=== PATIENT | male | born 1990 | race Caucasian/White ===

== ENCOUNTER 2021-06-06 20:02 | Emergency (ER) | payer OTHER, MEDICAID, SELFPAY ==
[2021-06-06 20:20] VITALS: BP 127/77; PULSE 106; RESP 15; TEMP 36.2; O2SAT 96; BMI 25.7
--- NOTE | 2021-06-06 20:34 | ED_ITS ---
HPI - Nausea/Vomiting/Diarrhea General Chief complaint: Nausea/Vomiting/Diarrhea Stated complaint: nausea/semi psych episode Time Seen by Provider: 06/06/21 20:07 Source: patient and family Mode of arrival: Ambulatory Limitations: no limitations History of Present Illness HPI Narrative: Patient is a 31-year-old male. Known history of schizophrenia. Is on Geodon and Seroquel. Does see a mental health provider. Patient states that for the past 2-3 days he has not had any sleep. He has been living in his car. He is hearing voices. He states the voices are saying ?not nice things ?he has had occasional thoughts of hurting himself. The voices are telling him to hurt himself. He has not had any of his medication the past 2-3 days and most likely has only been taking it sporadically over the past couple weeks. Denies chest pain. No abdominal pain. Is having some nausea. No change in bowel habits. No rashes. No headache. He states that he feels ?out of it ? Related Data Allergies Allergy/AdvReac Type Severity Reaction Status Date / Time No Known Drug Allergies Allergy Verified 06/06/21 20:19 Review of Systems Constitutional Comments: No headache Cardiovascular Comments: No chest pain Respiratory Comments: No shortness of breath Gastrointestinal Comments: Has nausea but no vomiting Integumentary/Breasts Comments: No rashes Neurologic Neurologic: Reports system reviewed and no additional complaints, except as documented and Reports behavioral changes Psychiatric Psychiatric: Reports as per HPI, Reports behavioral changes, Reports difficulty concentrating, Reports auditory hallucinations, Denies irritability, Denies gladis c attacks, Reports paranoia and Reports suicidal ideation Hematologic/Lymphatic On Anticoagulants: No Patient History Medical History Schizophrenia Social History Smoking Status: Never smoker Smoking Status: Never smoker alcohol intake frequency: a few times a month Substance Use Type: does not use Exam Initial Vital Signs Initial Vital Signs: Vital Signs Temperature 97.2 F L 06/06/21 20:20 Pulse Rate 106 H 06/06/21 20:20 Respiratory Rate 15 06/06/21 20:20 Blood Pressure 127/77 06/06/21 20:20 Pulse Oximetry 96 06/06/21 20:20 Const General: cooperative and disheveled HENMT Head: normal to inspection and normocephalic Resp Effort & Inspection: normal respiratory effort Auscultation: clear to auscultation bilaterally Cardio Rate: regular rate Rhythm: regular rhythm GI Inspection: normal to inspection Skin General: no rashes or lesions noted Neuro General: patient alert, patient awake and moves all extremities Extrem General: normal to inspection and capillary refill normal Psych Appearance: grossly normal Speech and Movement: restless Mood: anxious mood and irritable mood Affect: blunted Attitude: cooperative Judgment: fair Course Orders Ordered: ED Orders 06/06/21 20:42 Acetaminophen Stat Complete Blood Count AUTO DIFF Stat Comprehensive Metabolic Panel Stat Ethanol (ETOH) Stat Lipase Stat Salicylate Stat Thyroid Stimulating Hormone Stat Discontinued Medications Sodium Chloride (Normal Saline 0.9%) 1,000 mls @ 1,000 mls/hr IV BOLUS ONE Stop: 06/06/21 21:30 Last Infusion: 06/06/21 21:55 Dose: 0 mls/hr Documented by: Admin: 06/06/21 20:47 Dose: 1,000 mls/hr Documented by: BEN Ondansetron HCl (Ondansetron 4 Mg/2 Ml Inj) 4 mg IV NOW ONE Stop: 06/06/21 20:32 Last Admin: 06/06/21 21:55 Dose: Not Given Documented by: BEN Quetiapine Fumarate (Quetiapine 25 Mg Tablet) 100 mg PO NOW ONE Stop: 06/06/21 20:32 Last Admin: 06/06/21 20:47 Dose: 100 mg Documented by: BEN Vital Signs Vital signs: Vital Signs - 8 hr 06/06/21 20:20 Temperature 97.2 F L Pulse Rate 106 H Respiratory Rate 15 Blood Pressure 127/77 Pulse Oximetry 96 MDM - Nausea/Vomiting/Diarrhea Lab Data Attestation: I reviewed the patient's lab results. Result diagrams: 06/06/21 20:42 06/06/21 20:42 Labs: Lab Results 06/06/21 06/06/21 06/06/21 Range/Units 20:42 20:42 20:42 WBC 8.4 (4.5-11.0) X10^3/uL RBC 4.85 (4.5-5.9) X10^6/uL Hgb 15.6 (13.5-17.5) g/dL Hct 44.9 (41-53) % MCV 92.5 (80-100) fL MCH 32.2 (26-34) PG MCHC 34.8 (30-36) % RDW 12.9 (11.6-14.8) % Plt Count 261 (150-400) X10^3/uL Neut % (Auto) 82.4 H (50-75) % Lymph % (Auto) 8.3 L (25-40) % Barber % (Auto) 6.5 (3-14) % Eos % (Auto) 0.6 L (2-4) % Baso % (Auto) 2.2 H (0-2) % Neut # (Auto) 6900 (5478-5187) /uL Lymph # (Auto) 700 L (1070-1904) /uL Barber # (Auto) 500 (0-900) /uL Eos # (Auto) 100 (0-450) /uL Baso # (Auto) 200 H (0-100) /uL Sodium 141 (137-145) mmol/L Potassium 4.4 (3.4-5.1) mmol/L Chloride 106 (98-107) mmol/L Carbon Dioxide 18 L (22-32) mmol/L BUN 24 H (9-20) mg/dL Creatinine 1.21 (0.66-1.25) mg/dL Estimated GFR > 60.0 (>60) mL/min BUN/Creatinine Ratio 19.8 (6-22) Glucose 103 H (70-100) mg/dL Calcium 10.7 H (8.4-10.2) mg/dL Total Bilirubin 1.4 H (0.2-1.3) mg/dL AST 25 (17-59) IU/L ALT 20 (<50) IU/L Alkaline Phosphatase 78 (38-126) U/L Total Protein 8.4 H (6.3-8.2) g/dL Albumin 5.2 H (3.5-5.0) g/dL Globulin 3.2 (1.7-4.1) g/dL Albumin/Globulin Ratio 1.6 (1.0-2.8) Lipase 97 (23-300) U/L TSH (0.47-4.68) uIU/mL Salicylates < 1.0 (<20) mg/dL Acetaminophen < 10 L (10-30) ug/mL Ethyl Alcohol < 10 ( - 10) mg/dL 06/06/21 Range/Units 20:42 WBC (4.5-11.0) X10^3/uL RBC (4.5-5.9) X10^6/uL Hgb (13.5-17.5) g/dL Hct (41-53) % MCV (80-100) fL MCH (26-34) PG MCHC (30-36) % RDW (11.6-14.8) % Plt Count (150-400) X10^3/uL Neut % (Auto) (50-75) % Lymph % (Auto) (25-40) % Barber % (Auto) (3-14) % Eos % (Auto) (2-4) % Baso % (Auto) (0-2) % Neut # (Auto) (0611-0542) /uL Lymph # (Auto) (6914-5653) /uL Barber # (Auto) (0-900) /uL Eos # (Auto) (0-450) /uL Baso # (Auto) (0-100) /uL Sodium (137-145) mmol/L Potassium (3.4-5.1) mmol/L Chloride (98-107) mmol/L Carbon Dioxide (22-32) mmol/L BUN (9-20) mg/dL Creatinine (0.66-1.25) mg/dL Estimated GFR (>60) mL/min BUN/Creatinine Ratio (6-22) Glucose (70-100) mg/dL Calcium (8.4-10.2) mg/dL Total Bilirubin (0.2-1.3) mg/dL AST (17-59) IU/L ALT (<50) IU/L Alkaline Phosphatase (38-126) U/L Total Protein (6.3-8.2) g/dL Albumin (3.5-5.0) g/dL Globulin (1.7-4.1) g/dL Albumin/Globulin Ratio (1.0-2.8) Lipase (23-300) U/L TSH 1.66 (0.47-4.68) uIU/mL Salicylates (<20) mg/dL Acetaminophen (10-30) ug/mL Ethyl Alcohol ( - 10) mg/dL MDM Narrative Medical decision making narrative: Patient is obviously responding to internal stimuli. He did take his home medications here in the emergency department. He was given fluids. His labs are unremarkable. Had a discussion with the patient and his mother who is bedside. Patient states that he does not want to be admi tted to the hospital. He states that he feels like he is safe at home. He is going to go home with his mother. We did discuss admitting him to the hospital. I do not feel that the patient warrants a involuntary admission. He states that he will take his medications tomorrow morning as directed. I feel patient can be discharged home safely and he did state that he would return if his symptoms worsen. Mother agrees with this plan as well. Discharge Plan Departure Patient Disposition: Home Clinical Impression: Schizophrenia Instructions: DI for Schizophrenia Activity Restrictions/Additional Instructions: I recommend that you continue to take your medications as directed. Also conta ct the [facility] providers tomorrow for follow-up. Return to the emergency department for any new or worsening symptoms
[2021-06-06] MEDS: QUETIAPINE 25 MG TABLET 100 MG PO (20:47)
[2021-06-06] MEDS: SODIUM CHLORIDE 0.9% 1,000 ML 1000 ML IV (20:47)
[2021-06-06 20:52] LABS: Add Manual Diff / Slide Review NO; Basophils Absolute Auto 200 /uL (0-100); Basophils Percent Auto 2.2 % (0-2); Eosinophils Absolute Auto 100 /uL (0-450); Eosinophils Percent Auto 0.6 % (2-4); Hematocrit 44.9 % (41-53); Hemoglobin 15.6 g/dL (13.5-17.5); Lymphocytes Absolute Auto 700 /uL (1100-4500); Lymphocytes Percent Auto 8.3 % (25-40); Mean Corpuscular HGB Conc 34.8 % (30-36); Mean Corpuscular Hemoglobin 32.2 PG (26-34); Mean Corpuscular Volume 92.5 fL (80-100); Monocytes Absolute Auto 500 /uL (0-900); Monocytes Percent Auto 6.5 % (3-14); Neutrophils Absolute Auto 6900 /uL (1500-7000); Neutrophils Percent Auto 82.4 % (50-75); Platelet Count 261 X10^3/uL (150-400); Red Blood Cell Count 4.85 X10^6/uL (4.5-5.9); Red Cell Distribution Width 12.9 % (11.6-14.8); White Blood Cell Count 8.4 X10^3/uL (4.5-11.0)
[2021-06-06 21:03] LABS: Acetaminophen < 10 ug/mL (10-30); Alanine Aminotransferase 20 IU/L (<50); Albumin 5.2 g/dL (3.5-5.0); Albumin Globulin Ratio 1.6 (1.0-2.8); Alkaline Phosphatase 78 U/L (38-126); Aspartate Aminotransferase 25 IU/L (17-59); BUN Creatinine Ratio 19.8 (6-22); Bilirubin Total 1.4 mg/dL (0.2-1.3); Blood Urea Nitrogen 24 mg/dL (9-20); Calcium 10.7 mg/dL (8.4-10.2); Carbon Dioxide 18 mmol/L (22-32); Chloride 106 mmol/L (98-107); Estimated Glomerular Filt Rate > 60.0 mL/min (>60); Ethanol (ETOH) < 10 mg/dL; Globulin 3.2 g/dL (1.7-4.1); Glucose 103 mg/dL (70-100); HEMOLYSIS < 15 (0-50); Lipase 97 U/L (23-300); Potassium 4.4 mmol/L (3.4-5.1); Salicylate < 1.0 mg/dL (<20); Sodium 141 mmol/L (137-145); Total Protein 8.4 g/dL (6.3-8.2)
--- NOTE | 2021-06-06 21:07 | PC.NURSE ---
Pt has trouble concentrating r/t distractions, endorses auditory hallucinations. States he feels anxious and fluttering eyes repeatedly, states this is typical for him. Geodon unavailable through hospital pharmacy, per Dr. Castanon request family member brought home Geodon. Pt initially hesitant to take medications, both Geodon and provided Seroquel swallowed by pt. States he does not feel nauseas any longer and declined Zofran. Pt vegan, apple sauce provided for snack with water.
[2021-06-06 21:59] LABS: Thyroid Stimulating Hormone 1.66 uIU/mL (0.47-4.68)
== END 2021-06-06 22:09 | disposition home or self-care (01) ==
PROVIDERS: Emergency Provider Emergency Medicine
DX: F20.9 Schizophrenia, unspecified (principal); R45.851 Suicidal ideations; R11.0 Nausea
CPT/HCPCS: 36415; 80053; 80320; 80329; 83690; 84443; 85025; 96360; 99284; G0480; J2405

== ENCOUNTER 2021-06-09 18:25 | Emergency (ER) | payer OTHER, MEDICAID, SELFPAY ==
[2021-06-09 18:43] VITALS: BP 127/66; PULSE 82; RESP 16; TEMP 36.5; O2SAT 98
--- NOTE | 2021-06-09 19:45 | ED.PSYCH ---
HPI - Psych General Chief Complaint: Psychiatric Symptoms Stated Complaint: revisit- no nausea same issues, monday night Time Seen by Provider: 06/09/21 18:50 Source: patient Mode of arrival: Ambulatory History of Present Illness HPI Narrative: 31-year-old male. Has a history of schizophrenia. I evaluated him here in the emergency department approximately 3 days ago. At that point he had not been on his medications for several days. Head only occasionally been taking them prior to that. He admitted to having auditory hallucinations. Admitted to occasionally having suicidal ideation. He was here with his mother. We had a long discussion the decision was to discharge home with follow-up. He agreed to take his medications as directed. He took them for the next 2 days. His mother states that he was improving. Had been sleeping. He states he was still hearing voices and they were just as intense as with they were prior to his visit in the ER. Last evening he did not take his medication. He did not have an exact reason why he he did not take it. He did not sleep last evening. He did take his medication this morning. He is back in the emergency department under the advice of his primary doctor because of continued symptoms and the concerned that without sleeping last night things may escalate. Related Data Home Medications Medication Instructions Recorded Confirmed quetiapine 100 mg tablet 100 mg PO BEDTIME 06/09/21 06/09/21 ziprasidone HCl 40 mg capsule 40 mg PO BID 06/09/21 06/09/21 Allergies Allergy/AdvReac Type Severity Reaction Status Date / Time No Known Drug Allergies Allergy Verified 06/06/21 20:19 Review of Systems Eyes Eyes: Reports system reviewed and no additional complaints, except as documented ENT Ears, Nose, Mouth, and Throat: Reports system reviewed and no additional complaints, except as documented Cardiovascular Cardiovascular: Denies chest pain and Denies dyspnea Respiratory Respiratory: Denies dyspnea Gastrointestinal Gastrointestinal: Denies abdominal pain Integumentary/Breasts Skin/Breast: Reports system reviewed and no additional complaints, except as documented Neurologic Neurologic: Reports system reviewed and no additional complaints, except as documented Psychiatric Psychiatric: Reports system reviewed and no additional complaints, except as documented and Reports as per HPI Hematologic/Lymphatic On Anticoagulants: No Patient History Medical History Schizophrenia Social History Smoking Status: Never smoker Smoking Status: Never smoker alcohol intake frequency: a few times a month Substance Use Type: does not use Exam Initial Vital Signs Initial Vital Signs: Vital Signs Temperature 97.7 F 06/09/21 18:43 Pulse Rate 82 06/09/21 18:43 Respiratory Rate 16 06/09/21 18:43 Blood Pressure 127/66 06/09/21 18:43 Pulse Oximetry 98 06/09/21 18:43 Const General: cooperative, healthy appearing, comfortable, well developed and well groomed Limitations: mental status not altered HENMT Head: normal to inspection and normocephalic Eyes General: appearance normal, both eyes and all related structures Resp Effort & Inspection: normal respiratory effort Cardio Rate: regular rate Skin General: no rashes or lesions noted Neuro General: patient alert, patient awake, patient oriented x3 and moves all extremities Extrem General: normal to inspection Psych Appearance: grossly normal and well kempt Speech and Movement: not agitated and not restless Mood: congruent mood Affect: blunted Attitude: cooperative Thought Content: hallucinations auditory, no homicidality and suicidality Judgment: fair Course Orders Ordered: ED Orders 06/09/21 20:06 Acetaminophen Stat Complete Blood Count AUTO DIFF Stat Comprehensive Metabolic Panel Stat Ethanol (ETOH) Stat Lipase Stat Salicylate Stat Thyroid Stimulating Hormone Stat 06/09/21 20:10 COVID19 -Nasal swab/Pre-Proc Stat 06/09/21 20:51 Urine Drug Screen, Rapid Stat Urine Microscopic Stat Vital Signs Vital signs: Vital Signs - 8 hr 06/09/21 18:43 06/10/21 01:04 Temperature 97.7 F Pulse Rate 82 80 Respiratory Rate 16 18 Blood Pressure 127/66 121/61 Pulse Oximetry 98 98 MDM - Psych Lab Data Attestation: I reviewed the patient's lab results. Result diagrams: 06/09/21 20:06 06/09/21 20:06 Labs: Lab Results 06/09/21 06/09/21 06/09/21 Range/Units 20:06 20:06 20:06 WBC 3.9 L (4.5-11.0) X10^3/uL RBC 4.43 L (4.5-5.9) X10^6/uL Hgb 14.1 (13.5-17.5) g/dL Hct 41.2 (41-53) % MCV 92.9 (80-100) fL MCH 31.9 (26-34) PG MCHC 34.4 (30-36) % RDW 12.5 (11.6-14.8) % Plt Count 238 (150-400) X10^3/uL Neut % (Auto) 53.3 (50-75) % Lymph % (Auto) 37.1 (25-40) % [place] % (Auto) 9.0 (3-14) % Eos % (Auto) 0.1 L (2-4) % Baso % (Auto) 0.5 (0-2) % Neut # (Auto) 2100 (8179-6684) /uL Lymph # (Auto) 1400 (5292-2590) /uL [place] # (Auto) 400 (0-900) /uL Eos # (Auto) 0 (0-450) /uL Baso # (Auto) 0 (0-100) /uL Sodium 141 (137-145) mmol/L Potassium 3.7 (3.4-5.1) mmol/L Chloride 105 (98-107) mmol/L Carbon Dioxide 21 L (22-32) mmol/L BUN 24 H (9-20) mg/dL Creatinine 0.82 (0.66-1.25) mg/dL Estimated GFR > 60.0 (>60) mL/min BUN/Creatinine Ratio 29.3 H (6-22) Glucose 75 (70-100) mg/dL Calcium 9.6 (8.4-10.2) mg/dL Total Bilirubin 1.4 H (0.2-1.3) mg/dL AST 26 (17-59) IU/L ALT 17 (<50) IU/L Alkaline Phosphatase 61 (38-126) U/L Total Protein 7.5 (6.3-8.2) g/dL Albumin 4.7 (3.5-5.0) g/dL Globulin 2.8 (1.7-4.1) g/dL Albumin/Globulin Ratio 1.7 (1.0-2.8) Lipase 47 D (23-300) U/L TSH 1.57 (0.47-4.68) uIU/mL Urine RBC (0-5/HPF) Urine WBC (0-5/HPF) Urine Bacteria (None) Urine Mucus (Negative) Ur Culture Indicated? Salicylates < 1.0 (<20) mg/dL U Opiates 300ng/mL cut (Negative) Ur Oxycodone Screen (Negative) Urine Methadone Screen (Negative) Acetaminophen < 10 L (10-30) ug/mL Ur Barbiturates Screen (Negative) U Tricyclic Antidepress (Negative) Ur Phencyclidine Scrn (Negative) Ur Amphetamines Screen (Negative) U Methamphetamines Scrn (Negative) Ur MDMA Scrn (Ecstasy) (Negative) U Benzodiazepines Scrn (Negative) Urine Cocaine Screen (Negative) U Marijuana (THC) Screen (Negative) Ethyl Alcohol < 10 ( - 10) mg/dL SARS-CoV-2 (PCR) (Negative) 06/09/21 06/09/21 06/09/21 Range/Units 20:10 20:51 20:51 WBC (4.5-11.0) X10^3/uL RBC (4.5-5.9) X10^6/uL Hgb (13.5-17.5) g/dL Hct (41-53) % MCV (80-100) fL MCH (26-34) PG MCHC (30-36) % RDW (11.6-14.8) % Plt Count (150-400) X10^3/uL Neut % (Auto) (50-75) % Lymph % (Auto) (25-40) % [place] % (Auto) (3-14) % Eos % (Auto) (2-4) % Baso % (Auto) (0-2) % Neut # (Auto) (4468-4910) /uL Lymph # (Auto) (7221-1838) /uL [place] # (Auto) (0-900) /uL Eos # (Auto) (0-450) /uL Baso # (Auto) (0-100) /uL Sodium (137-145) mmol/L Potassium (3.4-5.1) mmol/L Chloride (98-107) mmol/L Carbon Dioxide (22-32) mmol/L BUN (9-20) mg/dL Creatinine (0.66-1.25) mg/dL Estimated GFR (>60) mL/min BUN/Creatinine Ratio (6-22) Glucose (70-100) mg/dL Calcium (8.4-10.2) mg/dL Total Bilirubin (0.2-1.3) mg/dL AST (17-59) IU/L ALT (<50) IU/L Alkaline Phosphatase (38-126) U/L Total Protein (6.3-8.2) g/dL Albumin (3.5-5.0) g/dL Globulin (1.7-4.1) g/dL Albumin/Globulin Ratio (1.0-2.8) Lipase (23-300) U/L TSH (0.47-4.68) uIU/mL Urine RBC 1-5/hpf (0-5/HPF) Urine WBC 1-5/hpf (0-5/HPF) Urine Bacteria None seen (None) Urine Mucus 2+ H (Negative) Ur Culture Indicated? Cult not indicated Salicylates (<20) mg/dL U Opiates 300ng/mL cut Negative (Negative) Ur Oxycodone Screen Negative (Negative) Urine Methadone Screen Negative (Negative) Acetaminophen (10-30) ug/mL Ur Barbiturates Screen Negative (Negative) U Tricyclic Antidepress Negative (Negative) Ur Phencyclidine Scrn Negative (Negative) Ur Amphetamines Screen Negative (Negative) U Methamphetamines Scrn Negative (Negative) Ur MDMA Scrn (Ecstasy) Negative (Negative) U Benzodiazepines Scrn Positive H (Negative) Urine Cocaine Screen Negative (Negative) U Marijuana (THC) Screen Negative (Negative) Ethyl Alcohol ( - 10) mg/dL SARS-CoV-2 (PCR) Negative (Negative) MDM Narrative Medical decision making narrative: Patient is medically cleared. Patient is voluntary. Has been seen by social work. Will attempt to find bed placement care turned over to Dr. Bonilla at change of shift to continue with disposition. Discharge Plan Departure Prescriptions: No Action quetiapine 100 mg Tablet 100 mg PO BEDTIME RF: 0 ziprasidone HCl 40 mg Capsule 40 mg PO BID RF: 0
--- NOTE | 2021-06-09 20:06 | CM.SWNOTE ---
CURING FINISHER Assessment CURING FINISHER - Borematic Operator Assessment CURING FINISHER/Borematic Operator Assessment Time Spent with Patient Start date 06/09/21 Visit Start Time 19:25 End date 06/09/21 Visit End Time 19:45 Total time Care Management spent on 20 patient visit-in minutes Mental Health Screening Include Onset, Duration, Intensity Presenting Problem Patient presents to the ED with concerns for nausea, not eating or drinking, has not slept in three days and experiencing auditory hallucinations. Patient endorses SI with plans earlier today. Precipitating Event(s) Patient presented to ED on Monday06/06/21 with similar concerns but did not want to go to inpatient at that time. Patient is seeking voluntary inpatient and was referred to the ED via [facility] team and patient's [facility] shoe parts caser. It is reported that patient recently spent 3 consecutive days in his car not eating or drinking. Patient Strengths Patient is seeking help Current Behavioral Health Provider(s) Patient has [facility] Include Facility, Provider, Ph. # shoe parts caser Daniel De Leon, video game programmer Gaurav Lenz and is awaiting a [facility] therapist in [place] (Ph. # [phone]). Patient has been receiving [facility] services for the last 3 years. Psych. Hx Mental Health and Chemical Patient has hx of SA, SI, and Dependency Schizophrenia. Patient denies substance and ETOH use. Patient endorses he used to smoke tobacco. Family Hx of Behavioral Abuse None reported Psychiatric Hospitalizations (date(s)/ Patient endorses: location) [facility] - [facility] - November 2017 for 31 days [facility] - [facility] - 12/26/2020 for two weeks [facility] - Voluntary - twice, 2-3 months ago for 4-5 days Psychosocial information & Support Patient is 31 y/o male who Systems resides with father in [place] and with mother in [place] veneer department manager. Patient endorses his mother and father as supports as well as his [facility] team. School/Work None reported Legal Concerns Legal Matters - Outstanding Issues None reported Mental Status Orientation (Person/Place/Time) A/O to self, person, location but not time. Stated Mood spacing out Affect (Congruent with Mood?) flat, congruent with mood Thought Content - Specify/Describe Patient endorses auditory Obsessions, Delusions, Hallucinations hallucinations, hearing several voices saying several different things and it makes him feel unsafe. Patient did not want to elaborate. Patient denies visual hallucinations. Patient endorses paranoia due to auditory hallucinations and due to life. Thought Processes (Rlncswi-Ryraavbc-Rgtj coherent Igqvkqss-Fcrgwrff-Zwmbtlutxa- Qgkxaubhnujkba-Jmtguvs-Qwmxpudbjhbq- Thought Blocking) Speech (Reedmz-Extl-Xviunwb-Rapid-Soft- Slow/normal Loud-Pressured) Motor (Idrvkg-Fktkegxot-Eopu-Other) normal, not formally assessed Insight (Loav-Atpc-Wyam/Limited) fair/limited Judgement (Mown-Wmgg-Lcoj/Limited) fair/limited Impulse Control (Adequate-Impaired) adequate Memory (Ckhxnkuin-Aqdktn-Ajhkzc, mostly intact, not formally Impaired-Intact) assessed. patient did not know what day it was. Concentration (Intact-Impaired) intact Attention (Intact-Impaired) intact Behavior (Appropriate-Inappropriate) appropriate Additional Comment Patient is calm and communicative Risk Assessment Suicidal Ideation (Plan) Yes Homicidal Ideation (Plan) No Comment Patient denies HI. Patient denies self harm. Patient denies current SI but endorses SI with plans all day today. Patient did not want to disclose or elaborate on plans but indicates he has multiple SI plans in mind. Patient and mother endorse patient's history of suicidal attempt in 2018, leading to [facility] stay. Intervention Intervention CURING FINISHER enters room to meet with patient and patient provides consent to meet with patient's mother. Patient endorses I had a bad day last night and a bad day today. Patient endorses not sleeping for several days, not eating and not drinking. Patient has been nauseous and vomiting. Patient endorses ongoing auditory hallucinations and SI today. Patient and family contacts OT team and [facility] shoe parts caser and it is recommended that patient return to the ED to seek inpatient treatment. CURING FINISHER discusses voluntary inpatient hospitalization and patient indicates agreement and understanding. It is the opinion of this CURING FINISHER that patient is appropriate for and will benefit from voluntary inpatient hospitalization for safety, stabilization and medication management. Plan RA Plan CURING FINISHER to seek voluntary inpatient bed for patient when medically clear. BIBI Lockhart
--- NOTE | 2021-06-09 20:16 | CM.SWNOTE ---
NETWORK APPLICATIONS SPECIALIST Note NETWORK APPLICATIONS SPECIALIST calls [facility] and it is reported that they have beds and can review patient, NETWORK APPLICATIONS SPECIALIST or TURRET LATHE MACHINIST to fax clinicals when patient is medically clear. NETWORK APPLICATIONS SPECIALIST Calls [facility] intake and it is reported that they do not have beds today. NETWORK APPLICATIONS SPECIALIST calls [facility] and it is reported they do not have beds today. NETWORK APPLICATIONS SPECIALIST calls [facility] and it is reported that they do not have beds today. Plan: continue to seek voluntary inpatient bed for patient when medically clear. Flores Ace NETWORK APPLICATIONS SPECIALIST
[2021-06-09 20:29] LABS: Add Manual Diff / Slide Review NO; Basophils Absolute Auto 0 /uL (0-100); Basophils Percent Auto 0.5 % (0-2); Eosinophils Absolute Auto 0 /uL (0-450); Eosinophils Percent Auto 0.1 % (2-4); Hematocrit 41.2 % (41-53); Hemoglobin 14.1 g/dL (13.5-17.5); Lymphocytes Absolute Auto 1400 /uL (1100-4500); Lymphocytes Percent Auto 37.1 % (25-40); Mean Corpuscular HGB Conc 34.4 % (30-36); Mean Corpuscular Hemoglobin 31.9 PG (26-34); Mean Corpuscular Volume 92.9 fL (80-100); Monocytes Absolute Auto 400 /uL (0-900); Neutrophils Absolute Auto 2100 /uL (1500-7000); Neutrophils Percent Auto 53.3 % (50-75); Platelet Count 238 X10^3/uL (150-400); Red Blood Cell Count 4.43 X10^6/uL (4.5-5.9); Red Cell Distribution Width 12.5 % (11.6-14.8); White Blood Cell Count 3.9 X10^3/uL (4.5-11.0)
[2021-06-09 20:31] LABS: Acetaminophen < 10 ug/mL (10-30); Alanine Aminotransferase 17 IU/L (<50); Albumin 4.7 g/dL (3.5-5.0); Albumin Globulin Ratio 1.7 (1.0-2.8); Alkaline Phosphatase 61 U/L (38-126); Aspartate Aminotransferase 26 IU/L (17-59); BUN Creatinine Ratio 29.3 (6-22); Bilirubin Total 1.4 mg/dL (0.2-1.3); Blood Urea Nitrogen 24 mg/dL (9-20); Calcium 9.6 mg/dL (8.4-10.2); Carbon Dioxide 21 mmol/L (22-32); Chloride 105 mmol/L (98-107); Estimated Glomerular Filt Rate > 60.0 mL/min (>60); Ethanol (ETOH) < 10 mg/dL; Globulin 2.8 g/dL (1.7-4.1); Glucose 75 mg/dL (70-100); HEMOLYSIS < 15 (0-50); Lipase 47 U/L (23-300); Potassium 3.7 mmol/L (3.4-5.1); Salicylate < 1.0 mg/dL (<20); Sodium 141 mmol/L (137-145); Total Protein 7.5 g/dL (6.3-8.2)
[2021-06-09 20:34] LABS: COVID19 -Nasal RAPID Negative (Negative)
[2021-06-09 20:59] LABS: UR Morphine/Opiate cutoff 300 Negative (Negative); Ur Creatinine Normal (Normal); Ur Specific Gravity Normal (Normal); Urine Amphetamines Negative (Negative); Urine Barbiturates Negative (Negative); Urine Benzodiazepines Positive (Negative); Urine Cocaine Negative (Negative); Urine MDMA Negative (Negative); Urine Methadone Negative (Negative); Urine Methamphetamines Negative (Negative); Urine Oxycodone Negative (Negative); Urine Phencyclidine Negative (Negative); Urine Tetrahydrocannabinol Negative (Negative); Urine Tricyclic Antidepressant Negative (Negative); Urine pH Normal (Normal)
[2021-06-09 21:03] LABS: Thyroid Stimulating Hormone 1.57 uIU/mL (0.47-4.68)
[2021-06-09 21:10] LABS: Bacteria Urine None Seen; Culture Indicated Urine Cult Not Indicated; Mucus Urine 2+ (Negative); RBC Urine 1-5/HPF (0-5/HPF); WBC Urine 1-5/HPF (0-5/HPF)
--- NOTE | 2021-06-09 22:40 | PC.NURSE ---
Pt ate a whole can of tomato soup, apple sauce, and saltine crackers. He also drank 4oz of orange juice @2200
[2021-06-10 01:04] VITALS: BP 121/61; PULSE 80; RESP 18; O2SAT 98
--- NOTE | 2021-06-10 05:33 | PC.NURSE ---
Alfonso ortega denied accepting until pt has been eating/drinking for 24 hours @2200 Called Elias Jenkins, Jose C CHAVEZ, and Marilee and placed him on a wait list and will call back in the AM Well found, Alger, [place], and Davis denied.
--- NOTE | 2021-06-10 06:24 | PC.NURSE ---
He has slept through the night.
[2021-06-10 08:11] VITALS: PULSE 72; O2SAT 99
[2021-06-10 08:15] VITALS: BP 129/61; PULSE 74; RESP 16; O2SAT 100
--- NOTE | 2021-06-10 10:32 | PC.NURSE ---
Pt's mother brought in his home medications. Patient takes 40 mg Geodon BID and Seroquel p.m. This RN gave pt his a.m. dose of Geodon 40mg.
--- NOTE | 2021-06-10 10:33 | PC.NURSE ---
Patient reports eating his dinner last night (tomato soup, applesauce and juice. Patient ate his breakfast this morning (breakfast sandwich and juice). Vegan diet.
--- NOTE | 2021-06-10 14:47 | CM.SWNOTE ---
PUZZLE ASSEMBLER Note PUZZLE ASSEMBLER calls [facility], it is reported that the provider declined patient. PUZZLE ASSEMBLER calls [facility] intake it is reported that they only have one bed and are currently reviewing 3 patients. PUZZLE ASSEMBLER calls [facility] and intake reports that they can review patient, PUZZLE ASSEMBLER faxes packet for review. PUZZLE ASSEMBLER calls [facility], it is reported that they can review patient. PUZZLE ASSEMBLER faxes packet. PUZZLE ASSEMBLER receives calls from [facility], Carlos who states that she would like to speak with patient. Patient speaks with [facility] and patient endorses paranoia, anxiety, and hallucinations and SI with thoughts of using a knife. [facility] accepts patient and patient agrees but would like to speak to his mother about the [place] location. Patient and PUZZLE ASSEMBLER call patient's mother, who endorses support and indicates agreement. PUZZLE ASSEMBLER calls back [facility] and patient is accepted. Accepting Provider is Dr Bon Turcios MD with arrival ETA at 400 AM 06/11/21 Nurse to Nurse: [phone]. Plan: Patient to transfer to [facility] for voluntary inpatient hospitalization. Flores Ace MSW
[2021-06-10 20:14] VITALS: BP 114/63; PULSE 72; RESP 16; O2SAT 97
[2021-06-10 20:15] VITALS: BP 114/63; O2SAT 96
--- NOTE | 2021-06-10 21:19 | PC.NURSE ---
Per verbal order from Dr Salinas, pt given night time home medications as prescribed: 40mg Ziprasidone HCL, 1 and a half tablet of 100mg Quetiapine Fumarate.
[2021-06-11 02:06] VITALS: BP 109/55; PULSE 94; O2SAT 97
[2021-06-11 02:07] VITALS: BP 109/55
--- NOTE | 2021-06-11 02:21 | PC.NURSE ---
report called to [facility].
== END 2021-06-11 02:21 | disposition short-term general hospital (02) ==
PROVIDERS: Emergency Medicine; Emergency Provider Emergency Medicine
DX: F20.9 Schizophrenia, unspecified (principal); R45.851 Suicidal ideations; Z20.822 Contact with and (suspected) exposure to COVID-19
CPT/HCPCS: 36415; 80053; 80305; 80320; 80329; 81015; 83690; 84443; 85025; 87635; 99284; C9803; G0480